=== PATIENT | male | born 2000 | race Native Hawaiian/Other Pacific Islander ===

== ENCOUNTER 2022-12-28 07:56 | Emergency (ER) | payer BC, OTHER ==
[~2022-12-28] VITALS: Ht 170.2 cm; Wt 80.6 kg
[2022-12-28 07:57] VITALS: BP 134/72
[2022-12-28] MEDS ORDERED: IBUP-1114 PO (08:24)
[2022-12-28] MEDS ORDERED: ACETAMINOPHEN 325 MG TAB PO ONE (08:40)
== END 2022-12-28 11:06 | disposition home or self-care (01) ==
LOC: M ED 07:56
DX: S93.402A Sprain of unspecified ligament of left ankle, initial encounter (principal); W01.0XXA Fall on same level from slipping, tripping and stumbling without subsequent striking against object, initial encounter; Y92.89 Other specified places as the place of occurrence of the external cause; Y93.01 Activity, walking, marching and hiking; Y99.8 Other external cause status